=== PATIENT | female | born 1990 | race Caucasian/White ===

== ENCOUNTER 2017-05-29 15:10 | Emergency (ER) | payer SELFPAY ==
[~2017-05-29] VITALS: Ht 170.2 cm; Wt 108.0 kg
[~2017-05-29 15:10] MED LIST: ACULAR0.5 % OS; AUGMENTIN875TAB PO; BACLOFEN10 MG PO; CONCEPT OB OR; CONCEPT OB PO; FIORICET PO; FLEXERIL10 MG PO; FLONASE NASAL50 MCG; IRON (FERROUS S50 MG PO; MEDDOSEPAK PO; NAPROSYN500 MG PO; NO HOME MEDS; PENICILLN VK500 MG PO; PRENATAL 1 OR; PRENATAL1 TA1 PO; SPRINTEC 2828 DAY PO; TIZANIDINE HCL4 MG PO; TUBERSOL5 MG/0.1 M ID; ZOFRAN ODT4 MG PO
[2017-05-29] MEDS ORDERED: PENICILLN VK500 MG PO (16:52)
[2017-05-29] MEDS ORDERED: NORCO1 TA1 PO (16:52)
[2017-05-29 17:00] VITALS: BP 121/77
== END 2017-05-29 17:00 | disposition home or self-care (01) | DRG 159 ==
LOC: ED 15:10
DX: K08.89 Other specified disorders of teeth and supporting structures (principal)

== ENCOUNTER 2018-04-16 12:16 | Emergency (ER) | payer OTHER ==
[~2018-04-16] VITALS: Ht 167.6 cm; Wt 105.2 kg
[~2018-04-16 12:16] MED LIST changes: +NORCO1 TA1 PO
[2018-04-16 12:38] VITALS: BP 128/72
[2018-04-16] MEDS ORDERED: PENICILLN VK500 MG PO (12:39)
[2018-04-16] MEDS ORDERED: TRAMADOL HYDROC50 MG PO (12:39)
== END 2018-04-16 12:45 | disposition home or self-care (01) ==
LOC: ED 12:16
DX: K04.7 Periapical abscess without sinus (principal); K08.89 Other specified disorders of teeth and supporting structures; R09.81 Nasal congestion; R22.0 Localized swelling, mass and lump, head

== ENCOUNTER 2018-12-03 16:05 | Emergency (ER) | payer OTHER ==
[~2018-12-03] VITALS: Ht 167.6 cm; Wt 80.0 kg
[~2018-12-03 16:05] MED LIST changes: +TRAMADOL HYDROC50 MG PO
[2018-12-03 17:30] VITALS: BP 131/74
== END 2018-12-03 17:30 | disposition home or self-care (01) ==
LOC: ED 16:05
DX: S90.31XA Contusion of right foot, initial encounter (principal); W20.8XXA Other cause of strike by thrown, projected or falling object, initial encounter; Y92.009 Unspecified place in unspecified non-institutional (private) residence as the place of occurrence of the external cause

== ENCOUNTER 2021-07-27 20:55 | Emergency (ER) | payer OTHER ==
[~2021-07-27] VITALS: Ht 167.6 cm; Wt 98.0 kg
[2021-07-27] VITALS (7 sets, daily range): BP systolic 119–137; BP diastolic 71–84
[2021-07-27] MEDS ORDERED: VOLTAREN75 MG PO (23:26)
== END 2021-07-27 23:46 | disposition home or self-care (01) ==
LOC: ED 20:55
DX: S83.91XA Sprain of unspecified site of right knee, initial encounter (principal); X50.0XXA Overexertion from strenuous movement or load, initial encounter